=== PATIENT | male | born 1965 | race Caucasian/White ===

== ENCOUNTER 2016-11-19 12:16 | Day surgery (SDC) | payer OTHER ==
[2016-11-19 12:40] VITALS: BP 148/95; PULSE 77; RESP 20; TEMP 98.4; O2SAT 97
[2016-11-19] MEDS ORDERED: LUTE6CAP2 PO (12:46)
[2016-11-19] MEDS ORDERED: NAPR-701 PO (12:46)
[2016-11-19] MEDS ORDERED: VITA10007 PO (12:46)
[2016-11-19] MEDS ORDERED: CHON150C PO (12:46)
[2016-11-19] MEDS ORDERED: LACTCAP8 PO (12:46)
[2016-11-19] MEDS ORDERED: LORA10TA PO (12:46)
[2016-11-19] MEDS ORDERED: MAGN1TAB14 PO (12:46)
[2016-11-19] MEDS ORDERED: FISH120014 (12:46)
[2016-11-19] MEDS ORDERED: GLUC100017 PO (12:46)
[2016-11-19] MEDS ORDERED: COQ1100C (12:46)
[2016-11-19] MEDS ORDERED: MULT1TAB78 (12:46)
[2016-11-19] MEDS ORDERED: TRAM50TA PO (12:46)
[2016-11-19] MEDS ORDERED: TRIAMCINOLONE ACETONIDE 40 MG/ML VIAL ONE (14:23)
[2016-11-19] MEDS ORDERED: BUPIVACAINE HCL PF 0.75% 30 ML VIAL ONE (14:23)
--- NOTE | 2016-11-19 14:50 | PD.RAD ---
Post Procedure Progress Note Pre Procedure Diagnosis: (1) Osteoarthritis of left hip Post Procedure Diagnosis: (1) Osteoarthritis of left hip Procedure Date: Nov 19, 2016 Supervising Radiologist: Jose Daniel Plascencia JR Proceduralist/Assist: Ivana Acosta, RT(R)(CV), Zeynep Malik RT(R)() Anesthesia: Local Plan of Activity Patient to Unit: [facility] Patient Condition: Good Additional Comments: Left hip steroid injection without difficulty See PACS Report for procedural detail/treatment Jr. Temo,Jose Daniel Shepherd MD Nov 19, 2016 14:50
[2016-11-19] MEDS ORDERED: IOHEXOL 350 MG/ML 50 ML BTL (for RAD DIAG) ONE (14:53)
[2016-11-19 14:54] VITALS: BP 159/112; PULSE 71; RESP 20; TEMP 98.2; O2SAT 97
--- NOTE | 2016-11-19 16:12 | RADRPT ---
EXAM DATE/TIME: 11/19/2016 14:44 [facility] COMPARISON: No previous studies available for comparison. INDICATIONS : Patient is in need of a left hip injection due to chronic osteoarthritic pain. MEDICAL HISTORY : History of diverticulitis, lower back pain. SURGICAL HISTORY : History of colon resection and colostomy. ENCOUNTER: Initial ACUITY: >1 year PAIN SCORE: 3/10 LOCATION: Left hip, lower back FLUORO TIME: 0.7 minutes CONTRAST: 5cc Omnipaque (iohexol) 350 DEVICE: 20 gauge needle was placed into the left hip joint MEDICATIONS: 1.) 5 cc Lidocaine IA 2.) 4 cc bupivicaine (Marcaine) IA 3.) 40 triamcinolone (Kenalog) mg IA RESPONSE: Pre procedure pain level was 3/10. Post procedure pain level was 0/10. PROCEDURE : The risks, benefits and alternatives to the procedure were explained and verbal and written consent w as obtained. The site was prepped in sterile fashion. Full sterile technique was used, including ca p, mask, sterile gloves and gown and a large sterile sheet. Hand hygiene and 2% chlorhexidine and/or betadine/alcohol prep was utilized per protocol for cutaneous antisepsis. The skin and subcutaneous tissues were infiltrated with local anesthetic solution. Under sterile conditions and using aseptic technique with fluoroscopic guidance the joint was punctur ed and positive contrast was injected to confirm intra-articular position. Following this, the presc ribed mixture of Kenalog and local anesthetics was injected. The patient tolerated the procedure wel l and there were no complications. CONCLUSION: Uncomplicated therapeutic left hip injection performed under fluoroscopic guidance. Jose Daniel Plascencia Jr., MD on November 19, 2016 at 16:10 Board Certified Radiologist. This report was verified electronically.
== END 2016-11-19 15:15 | disposition home or self-care (01) ==
LOC: HROP 12:16 → HRIP 12:18 → HROP 15:15
DX: M25.552 Pain in left hip (principal); M16.12 Unilateral primary osteoarthritis, left hip; M54.5 Low back pain
CPT/HCPCS: 20610; 77002; J3301; Q9967

== ENCOUNTER 2017-03-04 13:08 | Day surgery (SDC) | payer OTHER, MEDICAID ==
[~2017-03-04 13:08] MED LIST: CHON150C PO; COQ1100C; FISH120014; GLUC100017 PO; LACTCAP8 PO; LORA10TA PO; LUTE6CAP2 PO; MAGN1TAB14 PO; MULT1TAB78; NAPR-701 PO; TRAM50TA PO; VITA10007 PO
[2017-03-04 13:35] VITALS: BP 142/94; PULSE 77; RESP 20; TEMP 98.3
[2017-03-04] MEDS ORDERED: ALLE10TA PO (13:57)
[2017-03-04] MEDS ORDERED: ASCO10003 PO (13:57)
[2017-03-04] MEDS ORDERED: TRIAMCINOLONE ACETONIDE 40 MG/ML VIAL ONE (14:09)
[2017-03-04] MEDS ORDERED: BUPIVACAINE HCL PF 0.75% 30 ML VIAL ONE (14:09)
[2017-03-04 14:40] VITALS: BP 150/88; PULSE 65; RESP 16; TEMP 98.6; O2SAT 98
--- NOTE | 2017-03-04 16:31 | PD.RAD ---
Post Procedure Progress Note Pre Procedure Diagnosis: (1) Osteoarthritis of left hip Post Procedure Diagnosis: (1) Osteoarthritis of left hip Procedure Date: Mar 04, 2017 Supervising Radiologist: Jose Daniel Plascencia JR Proceduralist/Assist: Zeynep Malik RT(R)(), Deborah Jain RT(R)() Anesthesia: Local Plan of Activity Patient to Unit: [facility] Patient Condition: Good Additional Comments: left hip steroid injection performed without difficulty. See PACS Report for procedural detail/treatment Jr. Temo,Jose Daniel Shepherd MD Mar 04, 2017 16:31
--- NOTE | 2017-03-04 17:56 | RADRPT ---
EXAM DATE/TIME: 03/04/2017 14:34 [facility] COMPARISON: No previous studies available for comparison. INDICATIONS : Patient is in need of a left hip injection for chronic pain due to osteoarthritis and degeneration of left hip joint. MEDICAL HISTORY : History of diverticulitis, lower back pain. SURGICAL HISTORY : History of colon resection, colostomy, colostomy reversal. ENCOUNTER: Subsequent ACUITY: >1 year PAIN SCORE: 6/10 LOCATION: Left hip FLUORO TIME: 0.8 minutes IMAGE SERIES: 2 CONTRAST: 1cc Omnipaque (iohexol) 300 DEVICE: 22 gauge needle was placed into the left hip joint MEDICATIONS: 1.) 3 cc Lidocaine IA 2.) 3 cc bupivicaine (Marcaine) IA 3.) 80 mg triamcinolone (Kenalog) IA RESPONSE: Pre procedure pain level was 6/10. Post procedure pain level was 0/10. PROCEDURE : The risks, benefits and alternatives to the procedure were explained and verbal and written consent w as obtained. The site was prepped in sterile fashion. Full sterile technique was used, including ca p, mask, sterile gloves and gown and a large sterile sheet. Hand hygiene and 2% chlorhexidine and/or betadine/alcohol prep was utilized per protocol for cutaneous antisepsis. The skin and subcutaneous tissues were infiltrated with local anesthetic solution. Under sterile conditions and using aseptic technique with fluoroscopic guidance the joint was punctur ed and positive contrast was injected to confirm intra-articular position. Following this, the presc ribed mixture of Kenalog and local anesthetics was injected. The patient tolerated the procedure wel l and there were no complications. CONCLUSION: Uncomplicated therapeutic injection of the left hip performed under fluoroscopic guidance. Jose Daniel Plascencia Jr., MD on March 04, 2017 at 17:54 Board Certified Radiologist. This report was verified electronically.
== END 2017-03-04 15:15 | disposition home or self-care (01) ==
LOC: HROP 13:08 → HRIP 13:11 → EDSTATUS 14:00 → HROP 15:15 → EDSTATUS 03-05 14:00
DX: G89.29 Other chronic pain (principal); M25.552 Pain in left hip; M16.12 Unilateral primary osteoarthritis, left hip
CPT/HCPCS: 20610; J3301; 77002

== ENCOUNTER → 2017-06-05 | Outpatient (CLI) | payer MEDICAID ==
[~2017-06-05] MED LIST changes: +ALLE10TA PO; +ASCO10003 PO; -FISH120014; -LACTCAP8 PO; -LORA10TA PO; -VITA10007 PO
--- NOTE | 2017-06-05 12:42 | EKG ---
Date Performed: 06/05/2017 Time Performed: 09:16:13 PTAGE: 52 years EKG: Sinus rhythm NORMAL ECG NO PREVIOUS TRACING DOCTOR: Spenser Horta Interpretating Date/Time 06/05/2017 12:40:51
== END ==
LOC: HCAV 09:06
DX: Z01.818 Encounter for other preprocedural examination (principal)
CPT/HCPCS: 93005